=== PATIENT | male | born 1985 ===

== ENCOUNTER 2021-03-28 10:15 | Outpatient (CLI) | payer BC | END 2021-03-28 10:16 | disposition home or self-care (01) | LOC: TBSIIMAG 10:15 | PROVIDERS: ATTEND Surgery | DX: M54.50 Low back pain, unspecified (principal); M51.36 Other intervertebral disc degeneration, lumbar region; M51.37 Other intervertebral disc degeneration, lumbosacral region | CPT/HCPCS: 72120; 72148 ==